=== PATIENT | male | born 1950 | race Hispanic/Latino ===

== ENCOUNTER 2019-06-02 15:22 | Inpatient (IN) | payer OTHER, MEDICARE ==
[~2019-06-02] VITALS: Ht 167.6 cm; Wt 79.0 kg
[~2019-06-02 15:22] MED LIST: ACET-2247 PO; ATOR20TA65 PO; CARV6.25 PO; CLON0.5T4 PO; CLOP75TA32 PO; GABA-531 PO; HYDR500C2 PO; INSLAN SQ; INSU100C14 SQ; LEVO112T7 PO; MONT10TA26 PO; RANO500T2 PO
[2019-06-02 18:00] LABS: BASOPHILS % (AUTO) 0.6 % (0.0-5.0); CREATININE 4.5 mg/dL (0.5-1.5); EOSINOPHILS % (AUTO) 1.9 % (0.0-8.0); HEMATOCRIT 26.8 % (42-54); LYMPHOCYTES % (AUTO) 4.4 % (21.0-51.0); MEAN CORPUSCULAR HEMOGLOBIN 39.9 pg (27.0-33.0); MEAN CORPUSCULAR VOLUME 117.5 fL (79-99); MONOCYTES % (AUTO) 2.1 % (3.0-13.0); NEUTROPHILS % (AUTO) 89.7 % (40.0-77.0); PLATELET COUNT (AUTO) 154 K/uL (130-400); POTASSIUM 3.3 mmol/L (3.5-5.1); RED BLOOD CELL COUNT(AUTO) 2.28 MIL/uL (4.50-6.20); WHITE BLOOD COUNT (AUTO) 24.8 K/uL (4.8-10.8)
[2019-06-02 18:05] LABS: ALBUMIN 3.3 g/dL (3.5-5.0); BILIRUBIN,TOTAL 0.8 mg/dL (0.2-1.0); TOTAL PROTEIN, SERUM 7.4 g/dL (6.0-8.3)
[2019-06-02] MEDS ORDERED: ACETAMINOPHEN 325 MG TAB PO PRN ×2 (19:00)
[2019-06-02] MEDS ORDERED: HYDRALAZINE HCL 20 MG/ML VIAL IV PRN (19:00)
[2019-06-02] MEDS ORDERED: FAMOTIDINE/PF 20 MG/2 ML VIAL IV ONE (19:57)
[2019-06-02] MEDS ORDERED: ZOSYN 3.375GM+NS 50ML 50 ML IV ONE (19:57)
[2019-06-02 20:24] VITALS: BP 127/33
[2019-06-02] MEDS ORDERED: SODIUM CHLORIDE 0.9% 1000ML 1,000 ML IV ONE (20:24)
[2019-06-02] MEDS: ZOSYN 3.375GM+NS 50ML 50 ML IV SCH (21:00)
[2019-06-02 22:02] VITALS: BP 142/42
[2019-06-03] VITALS (22 sets, daily range): BP systolic 118–186; BP diastolic 42–92
[2019-06-03] MEDS ORDERED: INSLAN SQ (06:33)
[2019-06-03] MEDS ORDERED: ASPI-555 PO (06:33)
[2019-06-03] MEDS ORDERED: PIPE3.379 IV (06:33)
[2019-06-03] MEDS ORDERED: CHOL200079 PO (06:33)
[2019-06-03] MEDS ORDERED: FOLI1 PO (06:33)
[2019-06-03] MEDS ORDERED: INSU100V39 SQ (06:33)
[2019-06-03] MEDS ORDERED: CLON0.5T4 PO (06:33)
[2019-06-03] MEDS ORDERED: LINE600T11 PO (06:33)
[2019-06-03] MEDS ORDERED: DOCU-116 PO (06:33)
[2019-06-03] MEDS ORDERED: LACT10SO9 PO (06:33)
--- NOTE | 2019-06-03 08:53 | NUR ---
Notified Dr. Huitron, Dr. Rico, Dr. Caldwell and Dr. Garcia of pending consultations; HD nurse called to notify of HD order.
[2019-06-03] MEDS: ZOSYN 3.375GM+NS 50ML 50 ML IV SCH ×2 (10:10→21:29)
[2019-06-03] MEDS: FAMOTIDINE/PF 20 MG/2 ML VIAL IV SCH (10:10)
[2019-06-03] MEDS: ZYVOX 600 MG TAB PO SCH (14:09)
[2019-06-03 14:24] LABS: % IRON SATURATION 102.9 % (30-44)
[2019-06-03] MEDS ORDERED: LIDOCAINE HCL 1% MDV 50ML VIAL ONE (15:24)
[2019-06-03] MEDS ORDERED: BUPIVACAINE/PF 0.25% 30ML VIAL IJ ONE (15:24)
[2019-06-03] MEDS ORDERED: FENTANYL CITRATE PF 50 MCG/1 ML 2ML VIAL ONE (15:50)
[2019-06-03] MEDS ORDERED: MIDAZOLAM HCL 1 MG/ML 2ML VIAL ONE (15:50)
--- NOTE | 2019-06-03 16:00 | NUR ---
Pt. to surgery via bed for procedure with ; verbalized understanding and consent for planned procedure; signed consent on chart.
--- NOTE | 2019-06-03 18:12 | NUR ---
INITIAL: Pt out to surgical procedure. No family members in the room. Call was made to Kristen Zurita (spouse). Per pts spouse prior to admission pt was at [facility] for rehab. Per pts spouse after amputation pt was wc bound and was transferring w assist. He has a wc @ home and provider services 4hr/day. Per pts spouse they would like for pt to return to SNF to complete Rehab. Informed spouse and son Salvatore that once pt is closer to dc and Md gives order for referral, consent will be obtained and referral faxed. Informed them that insurance would have to give authorization to return. CM to continue to follow and wait for Md recommendations. Addendum: 06/03/19 at 1815 by SAL CLARK Amended: Links added.
[2019-06-04] VITALS (7 sets, daily range): BP systolic 96–131; BP diastolic 42–70
--- NOTE | 2019-06-04 00:10 | NUR ---
ATTENDING PAGED ATTENDING PAGED REGARDING MED REC CONSOLIDATION CONTINUATION AND THE AMOUNT OF BLOOD WITHIN THE WOUND VAC CANISTER. ATTENDING ALSO NOTIFIED REGARDING THE BLOOD SEEPING FROM WOUND VAC TAPE AND BLOOD CLOT NOTICED.
--- NOTE | 2019-06-04 00:15 | NUR ---
WOUND VAC PT HAD SIGNIFICANT AMOUNT OF BLOOD SEEPING FROM TAPE WHERE WOUND VAC WAS PLACE. LARGE BLOOD CLOT WAS NOTED UNDER THE WOUND VAC TRANSPARENT TAPE AND BLOOD ACTIVELY BLEEDING FROM PROXIMAL PORTION OF WHERE WOUND VAC TAPE ENDED. BLOOD WITHIN THE WOUND VAC CANISTER IS 200 ML. WOUND VAC DRESSING REMOVED AND OOZING BLOOD WAS NOTICE TO THE LATERAL AND MEDIAL PORTION OF THE WOUND. PRESSURE WAS APPLIED FOR 10 MINS; HOWEVER, PT CONTINUED TO OOZE BLOOD. PRESSURE DRESSING PLACED AT THIS TIME. Addendum: 06/04/19 at 0052 by RIZWAN HERCULES RN RN PT LEG KEPT ELEVATED AT THIS TIME. PT IS CALM AND COLLECTIVE IN BED NO S/S OF DISTRESS. WILL CONTINUE TO MONITOR
--- NOTE | 2019-06-04 00:25 | NUR ---
DR. GARCIA PAGED DR. GARCIA PAGED AT THIS TIME TO NOTIFY HIM REGARDING PT BLOOD OOZING.
[2019-06-04] MEDS: ZYVOX 600 MG TAB PO SCH ×2 (01:05→12:48)
[2019-06-04] MEDS: MORPHINE SULFATE 2 MG/ML 1ML SYG IV PRN ×4 (01:06→18:03)
--- NOTE | 2019-06-04 01:30 | NUR ---
LEFT CENTRAL LINE DRESSING LEFT ARM CENTRAL LINE DRESSING CHANGE DONE AT THIS TIME USING STERILE TECHNIQUE. PT TOLERATED WELL.
[2019-06-04] MEDS: ONDANSETRON HCL 4 MG/2 ML VIAL IV PRN (01:39)
[2019-06-04 06:23] LABS: HEMATOCRIT 22.4 % (42-54); MEAN CORPUSCULAR HEMOGLOBIN 38.9 pg (27.0-33.0); MEAN CORPUSCULAR VOLUME 117.9 fL (79-99); PLATELET COUNT (AUTO) 132 K/uL (130-400); WHITE BLOOD COUNT (AUTO) 28.8 K/uL (4.8-10.8)
[2019-06-04 06:35] LABS: BILIRUBIN,TOTAL 0.7 mg/dL (0.2-1.0); CREATININE 4.3 mg/dL (0.5-1.5); MAGNESIUM 1.7 mg/dL (1.80-2.40); POTASSIUM 3.2 mmol/L (3.5-5.1); TOTAL PROTEIN, SERUM 6.8 g/dL (6.0-8.3)
--- NOTE | 2019-06-04 06:38 | NUR ---
DR. GARCIA PAGED DR. GARCIA PAGED AT THIS TIME
--- NOTE | 2019-06-04 06:48 | NUR ---
DR. MOODY RENDON, COVERING FOR DR. GARCIA, CALLED BACK AND INFORMED REGARDING PT ACTIVE BLEED FROM SX SITE. MD ALSO INFORMED REGARDING DROP IN H/H. NO NEW ORDERS AND DEFER H/H TO PRIMARY
--- NOTE | 2019-06-04 07:00 | NUR ---
PRIMARY PAGED SPOKE TO PRIMARY MD AT THIS TIME REGARDING THE DROP IN H/H AND REMOVAL OF WOUND VAC DUE TO BLOOD LOSS. NEW ORDER: REPEAT H/H AT 1200 (06/04/19).
[2019-06-04] MEDS: LEVOTHYROXINE 100 MCG TABLET PO SCH (07:30)
[2019-06-04] MEDS: INSULIN LISPRO 100 UNIT/ML 3ML SQ SCH ×4 (07:30→21:00)
[2019-06-04] MEDS: CLOPIDOGREL BISULFATE 75 MG TAB PO SCH ×2 (09:00→13:07)
[2019-06-04] MEDS ORDERED: INSULIN GLARGINE 100 UNITS/ML 10 ML VIAL SQ SCH (09:00)
[2019-06-04] MEDS ORDERED: RANOLAZINE 500 MG TAB.SR.12H PO SCH (09:00)
[2019-06-04] MEDS: **HM** VIT D3 2000 UNITS PO SCH (09:00)
[2019-06-04 09:09] LABS: BASOPHILS % (MANUAL) 1 % (0-2); EOSINOPHILS % (MANUAL) 3 % (1-6); LYMPHOCYTES % (MANUAL) 4 % (22-44); MONOCYTES % (MANUAL) 2 % (2-9); SEGMENTED NEUTROPHILS % 90 % (40-70)
[2019-06-04 09:10] LABS: PLATELET MORPHOLOGY COMMENT ADEQUATE
[2019-06-04] MEDS: HYDROXYUREA 500 MG CAP PO SCH ×2 (10:29→22:20)
[2019-06-04] MEDS: ATORVASTATIN CALCIUM 20 MG TABLET PO SCH (10:29)
[2019-06-04] MEDS: ASPIRIN 81 MG EC TAB PO SCH (10:29)
[2019-06-04] MEDS: DOCUSATE SODIUM 100 MG CAP PO SCH ×2 (10:29→22:20)
[2019-06-04] MEDS: MONTELUKAST SODIUM 10 MG TAB PO SCH (10:29)
[2019-06-04] MEDS: CARVEDILOL 6.25 MG TABLET PO SCH ×2 (10:30→21:00)
[2019-06-04] MEDS: FOLIC ACID 1 MG TABLET PO SCH (10:30)
[2019-06-04] MEDS: ZOSYN 3.375GM+NS 50ML 50 ML IV SCH ×2 (10:31→21:00)
[2019-06-04] MEDS: SODIUM CHLORIDE 0.9% 1000ML 1,000 ML IV SCH (10:49)
[2019-06-04] MEDS: FAMOTIDINE/PF 20 MG/2 ML VIAL IV SCH (12:48)
--- NOTE | 2019-06-04 12:51 | NUR ---
DR. GARCIA AT THE BEDSIDE, AND ASSESSMENT TO HIS LT FOOT SURGERY DRSG REMOVED AFTER IT WAS BLEEDING, SPOKE WITH FAMILY , REGARDING THE ASSESSMENT TO HIS LEFT FOOT. PASCUAL , APPLICATION APPLY .
--- NOTE | 2019-06-04 12:55 | NUR ---
DR. GARCIA AND DR DANN WYNN AWARE OF PT LT FOOT . STATUS REGARDING HIS HGB THIS AM WAS A 7.2 AFTER DRSG APPLICATION WAS CHANGED DUE TO BLEEDING THIS EARLY AM. OKAY NOT TO TRANSFUSED AND TO OKAY GIVE THE PLAXIS AND THE RANEXA , TODAY DOSE,
--- NOTE | 2019-06-04 17:30 | NUR ---
LT FOOT. DRSG , BLEEDING , REMOVE DRSG TO REPLACE, DRSG APPLICATION DONE, WITH A KERLIX , HELEN , AND . STERILE GAUZE PLACE IN SIDE THE LT WOUND AREA,
--- NOTE | 2019-06-04 17:55 | NUR ---
DR. GARCIA WAS PAGED , TO LET HIM KNOW OF DRSG STATUS ,
--- NOTE | 2019-06-04 18:40 | NUR ---
DR. MARC WYNN , WAS CALLED AND ANSWER , UPDATE OF PT DRSG STATUS THAT IT HAD BLEED AGAIN AND PAIN, STATUS WITH A LABS H AND H , AND PAIN MEDICATION ORDE.R
[2019-06-04] MEDS ORDERED: ACETAMINOPHEN-CODEINE 300/30MG TAB PO PRN (18:45)
[2019-06-04 19:37] LABS: HEMATOCRIT 20.4 % (42-54)
--- NOTE | 2019-06-04 19:40 | NUR ---
VIC. BUENROSTRO COMBINATION WELDER APPRENTICE. CALLED , HGB OF 6.7 . HCT OF 20.4 WILL MONITOR . . PT IS ALSO A DIALYSIS PT. NO ORDERS TO TRANSFUSED
[2019-06-04] MEDS ORDERED: FENTANYL 25 MCG/HR PATCH TD SCH (20:15)
[2019-06-04] MEDS ORDERED: HYDROMORPHONE HCL 0.5 MG/0.5 ML ML IVP PRN (20:15)
--- NOTE | 2019-06-04 20:27 | NUR ---
COMPUTATIONAL BIOLOGIST ASSESSED PT , STATED DUE TO DECREASED BP TO TRANSFUSED 1 UNIT OF PRBC PT ACCEPTS PLAN OF CARE AND ACCEPTS
[2019-06-05] VITALS (7 sets, daily range): BP systolic 98–127; BP diastolic 41–65
[2019-06-05] MEDS: ZYVOX 600 MG TAB PO SCH ×2 (02:21→12:49)
[2019-06-05 06:05] LABS: BASOPHILS % (AUTO) 0.6 % (0.0-5.0); EOSINOPHILS % (AUTO) 2.6 % (0.0-8.0); HEMATOCRIT 22.5 % (42-54); LYMPHOCYTES % (AUTO) 5.2 % (21.0-51.0); MEAN CORPUSCULAR HEMOGLOBIN 37.1 pg (27.0-33.0); MEAN CORPUSCULAR HGB CONC 32.4 g/dL (32.0-36.0); MEAN CORPUSCULAR VOLUME 114.2 fL (79-99); MONOCYTES % (AUTO) 3.2 % (3.0-13.0); NEUTROPHILS % (AUTO) 83.8 % (40.0-77.0); NUCLEATED RED BLOOD CELLS 0.1 % (0.0-0.19); PLATELET COUNT (AUTO) 137 K/uL (130-400); RED BLOOD CELL COUNT(AUTO) 1.97 MIL/uL (4.50-6.20); WHITE BLOOD COUNT (AUTO) 28.6 K/uL (4.8-10.8)
[2019-06-05 06:16] LABS: BILIRUBIN,TOTAL 0.8 mg/dL (0.2-1.0); CREATININE 5.4 mg/dL (0.5-1.5); MAGNESIUM 1.9 mg/dL (1.80-2.40); POTASSIUM 3.4 mmol/L (3.5-5.1); TOTAL PROTEIN, SERUM 6.8 g/dL (6.0-8.3)
[2019-06-05] MEDS ORDERED: POTASSIUM CHLORIDE 20 MEQ ERTAB PO ONE (07:11)
--- NOTE | 2019-06-05 07:30 | NUR ---
DR. GARCIA IN TO SEE PT.SURGICAL FOOT WITH SOME BLEEDING DRESSING CHANGE DON BY DR. GARCIA.
[2019-06-05] MEDS: LEVOTHYROXINE 100 MCG TABLET PO SCH (08:09)
[2019-06-05] MEDS: INSULIN LISPRO 100 UNIT/ML 3ML SQ SCH ×4 (08:13→21:00)
[2019-06-05] MEDS ORDERED: INSULIN GLARGINE 100 UNITS/ML 10 ML VIAL SQ SCH (09:00)
[2019-06-05] MEDS: **HM** VIT D3 2000 UNITS PO SCH (09:00)
--- NOTE | 2019-06-05 09:00 | NUR ---
BOBO. AM MEDS. NOT GIVEN. PT. VERY SLEEPY AND UNABLE TO SWALLOW PILLS AT THIS TIME. WILL TRY AGAIN.
--- NOTE | 2019-06-05 09:00 | NUR ---
PLAVIX ON HOLD.
[2019-06-05] MEDS: ASPIRIN 81 MG EC TAB PO SCH (09:17)
[2019-06-05] MEDS: FOLIC ACID 1 MG TABLET PO SCH (09:17)
[2019-06-05] MEDS: DOCUSATE SODIUM 100 MG CAP PO SCH ×2 (09:17→21:00)
[2019-06-05] MEDS: ONDANSETRON HCL 4 MG/2 ML VIAL IV PRN ×2 (09:18→23:40)
[2019-06-05] MEDS: MONTELUKAST SODIUM 10 MG TAB PO SCH (09:18)
[2019-06-05] MEDS: FAMOTIDINE/PF 20 MG/2 ML VIAL IV SCH (09:18)
[2019-06-05] MEDS: ZOSYN 3.375GM+NS 50ML 50 ML IV SCH ×2 (09:18→23:18)
[2019-06-05] MEDS: ATORVASTATIN CALCIUM 20 MG TABLET PO SCH (09:18)
[2019-06-05] MEDS: INSULIN GLARGINE 100 UNITS/ML 10 ML VIAL SQ SCH (09:32)
--- NOTE | 2019-06-05 12:30 | NUR ---
MORE AWAKE AND RESPONSIVE WITH SPOUSE HELP ABLE TO GIVE SOME MEDICATION. PER DR. CASTAÑEDA IT IS BETTER TO NOT GIVE HEAVY NARCOTICS.
[2019-06-05] MEDS: HYDROXYUREA 500 MG CAP PO SCH ×2 (12:49→23:33)
--- NOTE | 2019-06-05 17:00 | NUR ---
MORE ALERT AND CO PERATIVE NOW BUT STILL EATING VERY LITTLE, HAS BEEN SLEEPING MOST OF DAY HOWEVER WAS ABLE TO SIT IN CHAIR FOR A SHORT PERIOD.
[2019-06-05] MEDS: CARVEDILOL 6.25 MG TABLET PO SCH ×2 (21:00→23:32)
[2019-06-06] MEDS: SODIUM CHLORIDE 0.9% 1000ML 1,000 ML IV SCH ×2 (02:49→16:09)
[2019-06-06 03:55] VITALS: BP 91/54
--- NOTE | 2019-06-06 03:57 | NUR ---
UPDATE INFORMED HOSPITALIST RODRIGUEZ OF PT STATUS WITH EMESIS NOT TOLERATE PO REFUSAL OF MEDS
[2019-06-06] MEDS ORDERED: HYDROMORPHONE HCL 0.5 MG/0.5 ML ML IVP ONE (04:00)
[2019-06-06 05:44] LABS: BASOPHILS % (AUTO) 0.4 % (0.0-5.0); EOSINOPHILS % (AUTO) 0.4 % (0.0-8.0); HEMATOCRIT 21.9 % (42-54); LYMPHOCYTES % (AUTO) 1.5 % (21.0-51.0); MEAN CORPUSCULAR HEMOGLOBIN 36.6 pg (27.0-33.0); MEAN CORPUSCULAR HGB CONC 32.4 g/dL (32.0-36.0); MEAN CORPUSCULAR VOLUME 112.9 fL (79-99); MONOCYTES % (AUTO) 1.4 % (3.0-13.0); NEUTROPHILS % (AUTO) 92.1 % (40.0-77.0); NUCLEATED RED BLOOD CELLS 0.1 % (0.0-0.19); PLATELET COUNT (AUTO) 134 K/uL (130-400); RED BLOOD CELL COUNT(AUTO) 1.94 MIL/uL (4.50-6.20)
[2019-06-06 05:48] LABS: WHITE BLOOD COUNT (AUTO) 40.2 K/uL (4.8-10.8)
[2019-06-06 05:52] LABS: CREATININE 6.8 mg/dL (0.5-1.5); POTASSIUM 4.4 mmol/L (3.5-5.1)
[2019-06-06 06:14] LABS: LYMPHOCYTES % (MANUAL) 2 % (22-44); MAN.DIFF COMMENT-IMPRESSION MANUAL DIFFERENTIAL; MONOCYTES % (MANUAL) 2 % (2-9); SEGMENTED NEUTROPHILS % 96 % (40-70)
[2019-06-06 06:15] LABS: PLATELET MORPHOLOGY COMMENT ADEQUATE
[2019-06-06] MEDS: INSULIN LISPRO 100 UNIT/ML 3ML SQ SCH ×4 (07:30→21:00)
[2019-06-06 07:56] VITALS: BP 117/58
[2019-06-06] MEDS ORDERED: ACETAMINOPHEN-CODEINE 300/30MG TAB PO PRN (08:30)
[2019-06-06] MEDS: **HM** VIT D3 2000 UNITS PO SCH (09:00)
[2019-06-06 11:40] VITALS: BP 127/54
[2019-06-06] MEDS: ASPIRIN 81 MG EC TAB PO SCH (11:48)
[2019-06-06] MEDS: FAMOTIDINE/PF 20 MG/2 ML VIAL IV SCH (11:48)
[2019-06-06] MEDS: ZOSYN 3.375GM+NS 50ML 50 ML IV SCH ×2 (11:48→21:48)
[2019-06-06] MEDS: ATORVASTATIN CALCIUM 20 MG TABLET PO SCH (11:48)
[2019-06-06] MEDS: DOCUSATE SODIUM 100 MG CAP PO SCH ×2 (11:49→21:00)
[2019-06-06] MEDS: LEVOTHYROXINE 100 MCG TABLET PO SCH (11:51)
[2019-06-06] MEDS: MONTELUKAST SODIUM 10 MG TAB PO SCH (11:51)
[2019-06-06] MEDS: CARVEDILOL 6.25 MG TABLET PO SCH ×2 (11:51→22:00)
[2019-06-06] MEDS: FOLIC ACID 1 MG TABLET PO SCH (11:52)
[2019-06-06] MEDS: ZYVOX 600 MG TAB PO SCH ×2 (12:20)
[2019-06-06] MEDS: HYDROXYUREA 500 MG CAP PO SCH ×2 (12:24→21:56)
[2019-06-06] MEDS: INSULIN GLARGINE 100 UNITS/ML 10 ML VIAL SQ SCH (12:27)
--- NOTE | 2019-06-06 13:02 | NUR ---
SEEN BY DRs. PITT, AND GARRY DURING ROUNDS. NOTIFIED BOTH MDs OF LAB REPORT OF LEFT FOOT WOUND CULTURE POSITIVE FOR ACINETOBACTER BAUMANNII. ALSO NOTIFIED DR. CASTAÑEDA OF LOW APETITE. NEW ORDERS NOTED. STABLE POST HEMODIALYSIS
--- NOTE | 2019-06-06 15:09 | NUR ---
MEET WITH PRIMARY NURSE, KORIN HOLDER. PER NURSE, PATIENT IS FROM [facility]. PER KORIN, DR. PITT SAID POSSIBLE AMPUTATION BUT AMPUTATION NOT ORDERED BY DR. GARCIA. PENDING MD ROUND FRO CLEAR DC PLAN. PER [facility], OK FOR PATIENT TO RETURN ONCE ORDER FOR SNF OBTAINED AND SNF AUTHORIZED BY [facility]. NURSE TO CALL DR. GARCIA AND FOR POSSIBLE AMPUTATION ORDER.
[2019-06-06 16:00] VITALS: BP 136/51
--- NOTE | 2019-06-06 16:02 | NUR ---
RD NOTIFICATION DIET: RENAL DIALYSIS. PO INTAKE <25% AND HAS POOR APPETITE. LABS REVIEWED. MEDS REVIEWED. LEFT FOOT DM ULCER WITH GANGRENE NOTED. PT IS ON DIALYSIS AT THIS TIME. S/P [employer] AMPUTATION OF LEFT FOOT ON 04/22/19. RD RECOMMENDS TO ADD NEPRO SUPP. TID RECOMMEND ALMA AND PROMOD BID FOR WOUND HEALING MONITOR PO INTAKE, TOLERANCE, LABS, BM Addendum: 06/06/19 at [address] Amended: Links added.
[2019-06-06 20:00] VITALS: BP 118/41
[2019-06-06] MEDS ORDERED: CLONAZEPAM 1 MG TABLET PO ONE (21:00)
[2019-06-07] VITALS (7 sets, daily range): BP systolic 102–142; BP diastolic 36–59
[2019-06-07] MEDS: ZYVOX 600 MG TAB PO SCH ×2 (00:57→12:32)
[2019-06-07] MEDS: SODIUM CHLORIDE 0.9% 1000ML 1,000 ML IV SCH (05:29)
--- NOTE | 2019-06-07 06:15 | NUR ---
UPDATE 5235 HOSPITALIST PAGED IN REGARDS TO PT PULLING OUT PICC LINE. DRESSING AND STAT LOCK CHANGED AND SECURED PICC LINE AT 8CM
[2019-06-07] MEDS: INSULIN LISPRO 100 UNIT/ML 3ML SQ SCH ×4 (06:32→22:30)
[2019-06-07 06:59] LABS: BASOPHILS % (AUTO) 0.5 % (0.0-5.0); EOSINOPHILS % (AUTO) 0.3 % (0.0-8.0); HEMATOCRIT 23.2 % (42-54); LYMPHOCYTES % (AUTO) 1.1 % (21.0-51.0); MEAN CORPUSCULAR HEMOGLOBIN 36.9 pg (27.0-33.0); MEAN CORPUSCULAR HGB CONC 32.3 g/dL (32.0-36.0); MEAN CORPUSCULAR VOLUME 114.3 fL (79-99); MONOCYTES % (AUTO) 1.8 % (3.0-13.0); NEUTROPHILS % (AUTO) 93.8 % (40.0-77.0); PLATELET COUNT (AUTO) 160 K/uL (130-400); RED BLOOD CELL COUNT(AUTO) 2.03 MIL/uL (4.50-6.20)
[2019-06-07 07:04] LABS: CREATININE 5.7 mg/dL (0.5-1.5); MAGNESIUM 2.3 mg/dL (1.80-2.40)
[2019-06-07 07:11] LABS: WHITE BLOOD COUNT (AUTO) 61.3 K/uL (4.8-10.8)
[2019-06-07] MEDS: LEVOTHYROXINE 100 MCG TABLET PO SCH (07:30)
--- NOTE | 2019-06-07 07:30 | NUR ---
RECEIVED PATIENT PER NURSE FROM DIVISION SALES MANAGER NURSE UPON SHIFT CHANGE, PATIENT HAD INADVERTENTLY PULLED LEFT UPPER ARM PICC LINE DURING MORNING LAB DRAW AND PICC LINE DRESSING CHANGE PERFORMED BY NIGHT NURSE. WHEN I RECEIVED PATIENT, LEFT UPPER ARM PICC LINE DRESSING INTACT, BRUISING NOTED TO LEFT UPPER ARM. LEFT FOOT GAUZE & HELEN WRAP DRESSING DRY AND INTACT. PATIENT ALERT AND ORIENTED X3.
[2019-06-07 07:35] LABS: BAND NEUTROPHILS % (MANUAL) 1 % (0-2); LYMPHOCYTES % (MANUAL) 3 % (22-44); MAN.DIFF COMMENT-IMPRESSION MANUAL DIFFERENTIAL; MONOCYTES % (MANUAL) 1 % (2-9); PLATELET MORPHOLOGY COMMENT ADEQUATE; SEGMENTED NEUTROPHILS % 95 % (40-70)
[2019-06-07] MEDS: **HM** VIT D3 2000 UNITS PO SCH (09:00)
[2019-06-07] MEDS: FAMOTIDINE/PF 20 MG/2 ML VIAL IV SCH (09:00)
[2019-06-07] MEDS: ZOSYN 3.375GM+NS 50ML 50 ML IV SCH (09:00)
[2019-06-07] MEDS: INSULIN GLARGINE 100 UNITS/ML 10 ML VIAL SQ SCH (09:58)
[2019-06-07] MEDS: HYDROXYUREA 500 MG CAP PO SCH ×2 (10:02→22:10)
[2019-06-07] MEDS: ASPIRIN 81 MG EC TAB PO SCH (10:02)
[2019-06-07] MEDS: DOCUSATE SODIUM 100 MG CAP PO SCH ×2 (10:03→22:11)
[2019-06-07] MEDS: CARVEDILOL 6.25 MG TABLET PO SCH ×2 (10:03→22:11)
[2019-06-07] MEDS: MONTELUKAST SODIUM 10 MG TAB PO SCH (10:03)
[2019-06-07] MEDS: FOLIC ACID 1 MG TABLET PO SCH (10:03)
[2019-06-07] MEDS: ATORVASTATIN CALCIUM 20 MG TABLET PO SCH (10:03)
[2019-06-07 10:59] LABS: INR 1.49 (0.85-1.15); PROTHROMBIN TIME 15.4 SEC (9.6-11.6)
[2019-06-07] MEDS ORDERED: PHARMACY COMMUNICATION MISC SCH ×2 (13:45→14:30)
[2019-06-07] MEDS ORDERED: COMPOUND PO MISCELLANEOUS 1 EACH MISC MISC PRN (14:15)
--- NOTE | 2019-06-07 14:45 | NUR ---
ASSESSED LEFT ARM PICC LINE FOR EXCHANGE, DUE TO PICC LINE PULLED OUT ABOUT 8.5CM AND REPORT OF PICC TIP SEEN AT ABOUT BRACHIOCEPHALIC VEIN PER DR. SANTIAGO RADIOLOGIST. 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 PHONE CALL MADE TO OWNER PROFESSIONAL ENGINEER DR. DAY TO ADVISE HIM OF ORDER BY DR. CASTAÑEDA TO EXCHANGE PICC. DR. DAY STATES THAT HE WANTS PICC EXCHANGED UNDER FLUOROSCOPY DUE TO PACEMAKER LEADS COMING FROM SAME SIDE. 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 I ADVISED DR. DAY THAT PICC NURSE DOESNT DO PICC WITH FLUOROSCOPIC GUIDANCE, SO HE REQUESTED THAT INTERVENTIONAL RADIOLOGY GET CONSULTED. ALSO CALLED DR. CASTAÑEDA TO NOTIFY OF DR. MCDONALD'S REQUEST. RADIOLOGY NURSE YESENIA MADE AWARE AND WILL COMMUNICATE WITH IR DR. ANDERSON OR DR. CUNNINGHAM FOR FURTHER RECOMMENDATION. YESENIA WILL COMMUNICATE WITH ELECTRIC MOTOR REBUILDER WITH IR DR. LEMUS
--- NOTE | 2019-06-07 15:30 | NUR ---
SPOKE TO DR. CASTAÑEDA AND ADVISED THAT BOTH PICC LUMENS HAVE GOOD BLOOD RETURN AND FLUSH EASILY WITH NO RESISTANCE. OK TO USE CURRENT PICC MIDLINE FOR ANTIBIOTIC ADMINISTRATION UNTIL PICC EXCHANGE IS COORDINATED. ALSO COMMUNICATED WITH PHAMACIST AND OKED TO GIVE CURRENT ANTIBIOTIC VIA PICC FUNCTIONING MIDLINE. WANDER HOLDER AND PLANT PRODUCTION MANAGER LAVON AWARE.
[2019-06-07] MEDS: VANCOMYCIN 250MG/5ML ORAL SOLUTION 40ML PO SCH ×4 (15:55→22:15)
[2019-06-07] MEDS: SODIUM CHLORIDE 0.9% IV SCH (15:59)
[2019-06-07] MEDS: COLISTIN IV SCH (15:59)
[2019-06-08] MEDS: ZYVOX 600 MG TAB PO SCH ×2 (00:02→12:00)
[2019-06-08] MEDS: ONDANSETRON HCL 4 MG/2 ML VIAL IV PRN (00:13)
[2019-06-08] MEDS: VANCOMYCIN 250MG/5ML ORAL SOLUTION 40ML PO SCH ×8 (03:11→20:50)
[2019-06-08 04:31] VITALS: BP 104/48
[2019-06-08] MEDS: INSULIN LISPRO 100 UNIT/ML 3ML SQ SCH ×4 (05:38→21:00)
[2019-06-08 05:48] LABS: CREATININE 6.7 mg/dL (0.5-1.5); MAGNESIUM 2.1 mg/dL (1.80-2.40); POTASSIUM 3.3 mmol/L (3.5-5.1)
[2019-06-08 05:49] LABS: BASOPHILS % (AUTO) 0.5 % (0.0-5.0); LYMPHOCYTES % (AUTO) 1.7 % (21.0-51.0); MEAN CORPUSCULAR HEMOGLOBIN 38.2 pg (27.0-33.0); MEAN CORPUSCULAR HGB CONC 33.3 g/dL (32.0-36.0); MEAN CORPUSCULAR VOLUME 114.5 fL (79-99); MONOCYTES % (AUTO) 1.3 % (3.0-13.0); NEUTROPHILS % (AUTO) 92.6 % (40.0-77.0); PLATELET COUNT (AUTO) 145 K/uL (130-400); RED BLOOD CELL COUNT(AUTO) 1.65 MIL/uL (4.50-6.20)
[2019-06-08 05:51] LABS: HEMATOCRIT 18.9 % (42-54); WHITE BLOOD COUNT (AUTO) 51.5 K/uL (4.8-10.8)
[2019-06-08] MEDS: LEVOTHYROXINE 100 MCG TABLET PO SCH (06:18)
--- NOTE | 2019-06-08 06:20 | NUR ---
HGB 6.3 AND WBC 51.5 SPOKE WITH WINSOME GLASS CRUSHER HE ORDERED REPEAT H AND H. SEEN PATIENT, PT IS ALERT ORIENTED X3. PT DENIED [place] SHORTNESS OF BREATHING NOR ANY PAIN NOR CHEST PAIN. VITAL SIGNS WITHIN NORMAL RANGE HR 82 BP 105/51 RR 18 TEMP 98.1 O2 SAT 98 TO ROOM AIR.
[2019-06-08 06:38] LABS: HEMATOCRIT 21.1 % (42-54)
[2019-06-08 08:00] VITALS: BP 93/38
--- NOTE | 2019-06-08 08:06 | NUR ---
HGB RESULTS REPEAT 6.9 SPOKE WITH THAD FROM LAB VIA PHONE, SHE SAID REPEAT HGB WAS 6.9, PAGED HOSPITALIST , SPOKE WITH ANSWERING SERVICE, HE SAID HE WILL PAGED THE HOSPITALIST TO EXT NUMBER [id number] VIRAMONTES. INFORMED GLORY VIRAMONTES ABOUT THE REPEAT H AND H AND WBC. INFORMED HER TO FOLLOW UP WITH HOSPITALIST, I ALREADY PAGED THEM. PENDING FOR CALL BACK
--- NOTE | 2019-06-08 08:35 | NUR ---
PATIENT SYMPTOMATIC CALLED DR. CASTAÑEDA TO REPORT PATIENT BP 93/38, HR 83, TEMP 97.4, O2 SAT 96% ON ROOM AIR. PATIENT ALSO REPORTS FEELING "DIZZY AND WEAK". MD PLACED ORDERS.
[2019-06-08] MEDS ORDERED: SODIUM CHLORIDE 0.9% 250 ML IV ONE (08:52)
--- NOTE | 2019-06-08 08:55 | NUR ---
BP RECHECK/NS BOLUS GIVEN DR. CASTAÑEDA HERE TO SEE PATIENT. BLOOD PRESSURE RECHECK 100/60. DR. CASTAÑEDA TOLD ME TO GIVE NS 100ML BOLUS INSTEAD AND GIVE ORDERED UNIT OF [facility] WHEN BLOOD READY. AWARE PATIENT TO RECEIVE HD TREATMENT TODAY.
[2019-06-08] MEDS: ASPIRIN 81 MG EC TAB PO SCH (09:00)
[2019-06-08] MEDS: MONTELUKAST SODIUM 10 MG TAB PO SCH (09:00)
[2019-06-08] MEDS: CARVEDILOL 6.25 MG TABLET PO SCH ×2 (09:00→20:51)
[2019-06-08] MEDS: **HM** VIT D3 2000 UNITS PO SCH (09:00)
[2019-06-08] MEDS: FOLIC ACID 1 MG TABLET PO SCH (09:00)
[2019-06-08] MEDS: DOCUSATE SODIUM 100 MG CAP PO SCH ×2 (09:00→20:50)
[2019-06-08] MEDS ORDERED: SODIUM CHLORIDE 0.9% 250 ML IV SCH (09:00)
[2019-06-08] MEDS ORDERED: CLOPIDOGREL BISULFATE 75 MG TAB PO SCH (09:00)
[2019-06-08] MEDS: ATORVASTATIN CALCIUM 20 MG TABLET PO SCH (09:00)
[2019-06-08] MEDS: HYDROXYUREA 500 MG CAP PO SCH ×2 (09:00→20:51)
[2019-06-08] MEDS: INSULIN GLARGINE 100 UNITS/ML 10 ML VIAL SQ SCH (09:00)
[2019-06-08 11:31] VITALS: BP 120/40
[2019-06-08] MEDS ORDERED: LOPERAMIDE 1 MG/7.5 ML UDCUP PO PRN (12:15)
--- NOTE | 2019-06-08 13:50 | NUR ---
CM NOTE MARILOU SIGNED FOR [facility]. PER , OK TO RETURN TO SNF ONCE READY TO DC FROM HOSPITAL, ANTICIPATED DC DATE OF 06/11/19. GRACY FROM [facility] CALLED FOR HELP WITH CLINICAL SUBMITTANCE. WILL SUBMIT ON 06/09/19, COPY OF PACKET GIVEN TO GRACY. ANTICIPATED EMS TRANSFER WELL, REQUEST FAXED AND RECEIVED AT [facility], PENDING EMS AUTHORIZATION.
[2019-06-08] MEDS: FAMOTIDINE/PF 20 MG/2 ML VIAL IV SCH (15:16)
[2019-06-08 16:05] VITALS: BP 113/46
[2019-06-08] MEDS: COLISTIN IV SCH (16:57)
[2019-06-08] MEDS: SODIUM CHLORIDE 0.9% IV SCH (16:57)
[2019-06-08] MEDS ORDERED: IODIXANOL 320 MG/ML 100 ML VIAL ONE (19:46)
[2019-06-08 20:40] VITALS: BP 102/51
[2019-06-08 23:00] VITALS: BP 136/76
[2019-06-09] MEDS: ZYVOX 600 MG TAB PO SCH ×3 (00:04→23:59)
[2019-06-09] MEDS: VANCOMYCIN 250MG/5ML ORAL SOLUTION 40ML PO SCH ×8 (02:40→20:07)
[2019-06-09 03:00] VITALS: BP 104/49
[2019-06-09] MEDS ORDERED: ALPRAZOLAM 0.25 MG TABLET PO STA (04:19)
[2019-06-09] MEDS ORDERED: ALPRAZOLAM 0.25 MG TABLET ONE (04:23)
[2019-06-09] MEDS: LEVOTHYROXINE 100 MCG TABLET PO SCH (05:36)
[2019-06-09] MEDS: INSULIN LISPRO 100 UNIT/ML 3ML SQ SCH ×4 (05:47→20:46)
[2019-06-09 07:16] LABS: CREATININE 5.3 mg/dL (0.5-1.5); POTASSIUM 3.2 mmol/L (3.5-5.1)
[2019-06-09 07:25] LABS: BASOPHILS % (AUTO) 0.6 % (0.0-5.0); EOSINOPHILS % (AUTO) 1.7 % (0.0-8.0); HEMATOCRIT 25.3 % (42-54); LYMPHOCYTES % (AUTO) 2.3 % (21.0-51.0); MEAN CORPUSCULAR HEMOGLOBIN 35.3 pg (27.0-33.0); MEAN CORPUSCULAR HGB CONC 32.8 g/dL (32.0-36.0); MEAN CORPUSCULAR VOLUME 107.7 fL (79-99); NEUTROPHILS % (AUTO) 86.6 % (40.0-77.0); NUCLEATED RED BLOOD CELLS 0.1 % (0.0-0.19); PLATELET COUNT (AUTO) 151 K/uL (130-400); RED BLOOD CELL COUNT(AUTO) 2.35 MIL/uL (4.50-6.20); RED CELL DISTRIBUTION WIDTH 29.5 % (11.0-15.5)
[2019-06-09 07:27] LABS: WHITE BLOOD COUNT (AUTO) 50.5 K/uL (4.8-10.8)
[2019-06-09 08:00] VITALS: BP 128/71
[2019-06-09 08:35] LABS: BAND NEUTROPHILS % (MANUAL) 1 % (0-2); EOSINOPHILS % (MANUAL) 1 % (1-6); LYMPHOCYTES % (MANUAL) 2 % (22-44); MONOCYTES % (MANUAL) 1 % (2-9); SEGMENTED NEUTROPHILS % 95 % (40-70)
[2019-06-09 08:39] LABS: MAN.DIFF COMMENT-IMPRESSION MANUAL DIFFERENTIAL
[2019-06-09 08:41] LABS: PLATELET MORPHOLOGY COMMENT ADEQUATE
[2019-06-09] MEDS: **HM** VIT D3 2000 UNITS PO SCH (09:00)
--- NOTE | 2019-06-09 10:00 | NUR ---
CM NOTE PENDING DR. GARCIA TO ROUND. CALLED DR. GARCIA TO SEE IF PHYSICAL THERAPY IS APPROPRIATE AND IF ABLE TO BEAR WEIGHT. NO ANSWER, MESSAGE LEFT. PENDING CALL BACK. DELEGATED TO INDIA HOLDER, TO INQUIRE ABOUT PT AND WEIGHT BEARING STATUS ON PATIENT FROM DR. GARCIA.
[2019-06-09] MEDS: ATORVASTATIN CALCIUM 20 MG TABLET PO SCH (10:17)
[2019-06-09] MEDS: HYDROXYUREA 500 MG CAP PO SCH ×3 (10:17→20:07)
[2019-06-09] MEDS: MONTELUKAST SODIUM 10 MG TAB PO SCH (10:17)
[2019-06-09] MEDS: ASPIRIN 81 MG EC TAB PO SCH (10:17)
[2019-06-09] MEDS: CLOPIDOGREL BISULFATE 75 MG TAB PO SCH (10:18)
[2019-06-09] MEDS: FAMOTIDINE/PF 20 MG/2 ML VIAL IV SCH (10:20)
[2019-06-09] MEDS: FOLIC ACID 1 MG TABLET PO SCH (10:20)
[2019-06-09] MEDS: INSULIN GLARGINE 100 UNITS/ML 10 ML VIAL SQ SCH (10:30)
--- NOTE | 2019-06-09 11:43 | NUR ---
PAGED DR. PEREZ RE:DIALYSIS. WAITING FOR CALL BACK. BOBO. HD YESTERDAY NOT DONE AND THIS AM PT. SOB AND LOOKS EDEMATOUS.
--- NOTE | 2019-06-09 11:46 | NUR ---
SM. AREA, PEA SIZE, WITH SKIN BREAKDOWN. PICTURE TAKEN, SKIN BARRIER APPLIED AND WOUND CARE CONSULT REQUEST REQUESTED.
[2019-06-09 12:00] VITALS: BP 97/58
--- NOTE | 2019-06-09 12:03 | NUR ---
TALKED TO DR. PEREZ AND GAVE HIM UPDATE ON PT. PLUS AM LABS, ORDER TO DIALYSIS TODAY GIVEN IT WAS MISSED YESTERDAY. HD NURSE NOTIFIED.
--- NOTE | 2019-06-09 12:21 | NUR ---
Nutrition Follow-up: Pt. S/P Cutting of skin soft tissue and removal of necrotic tissue / wound vac left foot(06/03/2019). Pt. on Renal Dialysis diet, Nepro TID, ProMod/Ayan BID. Pt. reports poor p.o. intake due to difficulty chewing. Spoke with pt. regarding adding finely chopped texture and pt. agreed. Pt. dislikes Ayan/ProMod and states is not drinking them. Family member requested to discontinue Ayan and ProMod. Pt. tolerating Nepro supp. well. Labs reviewed(Alb 3.0, K 3.2, BUN 45, Creat 5.3, GFR 11, BG 194). SR-18, left buttock ulcer. LBM: 06/09/2019. Recommendations: 1) Rec. 75gm CCD Renal Dialysis Finely Chopped diet. 2) Rec. D/C Ayan/Promod supplements per pt./family request. 3) Rec. 500mg Vit C BID and 220mg Zn Sulfate QD to help promote wound healing. 4) Continue to monitor pt's nutritional status. 5) Consult RD as nutrition concerns arise. Addendum: 06/09/19 at [address] Amended: Links added.
--- NOTE | 2019-06-09 13:50 | NUR ---
STARTED ON HD NOW, MISSED YESTERDAY DUE T LOW BP.
[2019-06-09 16:00] VITALS: BP 121/45
[2019-06-09] MEDS ORDERED: HEPARIN SODIUM 5000UNIT/ML 1ML VIAL IJ PRN (16:00)
[2019-06-09] MEDS ORDERED: 0.9% SODIUM CHLORIDE 1000 ML IV BAG IV PRN (16:00)
[2019-06-09] MEDS ORDERED: NITROGLYCERIN 0.4 MG SL TAB SL PRN (16:00)
[2019-06-09] MEDS ORDERED: SODIUM CHLORIDE 0.9% 1000ML 1,000 ML IV PRN (16:00)
--- NOTE | 2019-06-09 16:00 | NUR ---
WAS ON DIALYSIS FOR 2 HRS. AND STRUGGLED WITH BP. .5 LITERS REMOVED.
[2019-06-09] MEDS ORDERED: ACETAMINOPHEN 325 MG TAB PO PRN (16:15)
[2019-06-09] MEDS: SODIUM CHLORIDE 0.9% IV SCH (16:46)
[2019-06-09] MEDS: COLISTIN IV SCH (16:46)
[2019-06-09 20:00] VITALS: BP 112/46
[2019-06-10] VITALS (34 sets, daily range): BP systolic 85–165; BP diastolic 29–86
[2019-06-10] MEDS ORDERED: DIPHENHYDRAMINE HCL 25 MG CAPSULE PO STA (00:40)
--- NOTE | 2019-06-10 00:43 | NUR ---
SPOKE WITH BIMAL ARTIS FOR HOSPITALIST, INFORMED HER THAT PATIENT AND FAMILY MEMBER ARE STATING THAT PATIENT IS HAVING DIFFICULTY BREATHING BECAUSE HE IS GETTING SWOLLEN FORM NECK AREA. INFORMED HER THAT PATIENT O2 SAT IS 100% ON 2 LITERS, ALSO INFORMED HER THAT DR PEREZ HAD JUST ROUNDED ON PATIENT AND ASSESSED HIM AND HAD INFORMED HIM THAT HE WOULD POSSIBLY GET DIALYSIS TODAY. BIMAL ARTIS ORDERED TO GIVE PATIENT BENADRYL 25MG PO X 1 DOSE.
[2019-06-10] MEDS ORDERED: DIPHENHYDRAMINE HCL 25 MG CAPSULE ONE (00:47)
[2019-06-10] MEDS: VANCOMYCIN 250MG/5ML ORAL SOLUTION 40ML PO SCH ×8 (02:42→21:16)
[2019-06-10] MEDS: INSULIN LISPRO 100 UNIT/ML 3ML SQ SCH ×4 (05:46→21:00)
[2019-06-10] MEDS: LEVOTHYROXINE 100 MCG TABLET PO SCH ×2 (05:56→09:47)
[2019-06-10 06:08] LABS: BASOPHILS % (AUTO) 0.5 % (0.0-5.0); EOSINOPHILS % (AUTO) 2.9 % (0.0-8.0); HEMATOCRIT 23.4 % (42-54); LYMPHOCYTES % (AUTO) 4.2 % (21.0-51.0); MEAN CORPUSCULAR HEMOGLOBIN 34.8 pg (27.0-33.0); MEAN CORPUSCULAR HGB CONC 32.9 g/dL (32.0-36.0); MEAN CORPUSCULAR VOLUME 105.9 fL (79-99); MONOCYTES % (AUTO) 2.3 % (3.0-13.0); NEUTROPHILS % (AUTO) 88.8 % (40.0-77.0); NUCLEATED RED BLOOD CELLS 0.1 % (0.0-0.19); PLATELET COUNT (AUTO) 132 K/uL (130-400); RED BLOOD CELL COUNT(AUTO) 2.21 MIL/uL (4.50-6.20); RED CELL DISTRIBUTION WIDTH 28.5 % (11.0-15.5)
[2019-06-10 06:12] LABS: WHITE BLOOD COUNT (AUTO) 39.3 K/uL (4.8-10.8)
[2019-06-10 06:16] LABS: CREATININE 5.8 mg/dL (0.5-1.5); POTASSIUM 3.1 mmol/L (3.5-5.1)
[2019-06-10] MEDS: **HM** VIT D3 2000 UNITS PO SCH (09:00)
[2019-06-10] MEDS ORDERED: NOREPINEPHRINE 4MG/NS 250ML 250 ML IV SCH (09:30)
[2019-06-10] MEDS: MONTELUKAST SODIUM 10 MG TAB PO SCH (09:47)
[2019-06-10] MEDS: ASPIRIN 81 MG EC TAB PO SCH (09:47)
[2019-06-10] MEDS: ATORVASTATIN CALCIUM 20 MG TABLET PO SCH (09:47)
[2019-06-10] MEDS: CLOPIDOGREL BISULFATE 75 MG TAB PO SCH (09:47)
[2019-06-10] MEDS: FOLIC ACID 1 MG TABLET PO SCH (09:47)
[2019-06-10] MEDS: FAMOTIDINE/PF 20 MG/2 ML VIAL IV SCH (09:47)
[2019-06-10] MEDS: HYDROXYUREA 500 MG CAP PO SCH ×3 (09:47→21:41)
[2019-06-10] MEDS: INSULIN GLARGINE 100 UNITS/ML 10 ML VIAL SQ SCH (09:56)
--- NOTE | 2019-06-10 10:38 | NUR ---
Patient was received from 3rd floor at this time. Patient states no distress. Appropriate pictures of patient wounds taken at this time. Blood pressures are now stable. after patient was settled into unit, family has been at bedside. Call light within reach, will continue to monitor
[2019-06-10] MEDS: ZYVOX 600 MG TAB PO SCH (13:14)
[2019-06-10] MEDS ORDERED: ALBUMIN (HUMAN) 25% 50 ML IV SCH (16:00)
[2019-06-10] MEDS: COLISTIN IV SCH (16:37)
[2019-06-10] MEDS: SODIUM CHLORIDE 0.9% IV SCH (16:37)
--- NOTE | 2019-06-10 16:40 | NUR ---
Most recent bs 139, Patient does not have much of an appetite at this time. Holding scheduled Insulin
[2019-06-11] VITALS (23 sets, daily range): BP systolic 108–159; BP diastolic 42–88
[2019-06-11] MEDS: ZYVOX 600 MG TAB PO SCH ×3 (00:35→23:28)
[2019-06-11] MEDS: VANCOMYCIN 250MG/5ML ORAL SOLUTION 40ML PO SCH ×8 (03:08→21:19)
[2019-06-11 04:19] LABS: BASOPHILS % (AUTO) 0.4 % (0.0-5.0); EOSINOPHILS % (AUTO) 2.6 % (0.0-8.0); LYMPHOCYTES % (AUTO) 4.5 % (21.0-51.0); MEAN CORPUSCULAR HEMOGLOBIN 34.7 pg (27.0-33.0); MEAN CORPUSCULAR HGB CONC 32.9 g/dL (32.0-36.0); MEAN CORPUSCULAR VOLUME 105.6 fL (79-99); MONOCYTES % (AUTO) 1.7 % (3.0-13.0); NEUTROPHILS % (AUTO) 86.7 % (40.0-77.0); NUCLEATED RED BLOOD CELLS 0.1 % (0.0-0.19); PLATELET COUNT (AUTO) 93 K/uL (130-400); RED BLOOD CELL COUNT(AUTO) 1.96 MIL/uL (4.50-6.20); RED CELL DISTRIBUTION WIDTH 27.9 % (11.0-15.5)
[2019-06-11 04:34] LABS: CREATININE 4.6 mg/dL (0.5-1.5); HEMATOCRIT 20.7 % (42-54); POTASSIUM 3.2 mmol/L (3.5-5.1); WHITE BLOOD COUNT (AUTO) 29.9 K/uL (4.8-10.8)
[2019-06-11] MEDS ORDERED: LEVOTHYROXINE 112 MCG TABLET ONE (07:04)
[2019-06-11] MEDS: INSULIN LISPRO 100 UNIT/ML 3ML SQ SCH ×4 (07:22→21:00)
[2019-06-11] MEDS ORDERED: LEVOTHYROXINE 100 MCG TABLET PO SCH (07:30)
[2019-06-11] MEDS: **HM** VIT D3 2000 UNITS PO SCH (09:00)
[2019-06-11] MEDS: CLOPIDOGREL BISULFATE 75 MG TAB PO SCH (09:00)
[2019-06-11] MEDS: MONTELUKAST SODIUM 10 MG TAB PO SCH (09:04)
[2019-06-11] MEDS: HYDROXYUREA 500 MG CAP PO SCH ×3 (09:04→21:17)
[2019-06-11] MEDS: FAMOTIDINE/PF 20 MG/2 ML VIAL IV SCH (09:04)
[2019-06-11] MEDS: ASPIRIN 81 MG EC TAB PO SCH (09:04)
[2019-06-11] MEDS: ATORVASTATIN CALCIUM 20 MG TABLET PO SCH (09:04)
[2019-06-11] MEDS: FOLIC ACID 1 MG TABLET PO SCH (09:04)
[2019-06-11] MEDS: INSULIN GLARGINE 100 UNITS/ML 10 ML VIAL SQ SCH (09:07)
[2019-06-11] MEDS: SODIUM CHLORIDE 0.9% IV SCH (14:35)
[2019-06-11] MEDS: COLISTIN IV SCH (14:35)
[2019-06-11] MEDS: FERROUS SULFATE 325 MG TABLET.DR PO SCH (16:53)
[2019-06-11] MEDS: GUAIFENESIN-DM 200/20 MG 10 ML PO SCH ×2 (18:35→22:09)
[2019-06-12] VITALS (33 sets, daily range): BP systolic 105–155; BP diastolic 36–113
[2019-06-12] MEDS ORDERED: CLONAZEPAM 0.5 MG TABLET ONE (00:11)
[2019-06-12] MEDS: GUAIFENESIN-DM 200/20 MG 10 ML PO SCH ×7 (03:25→21:48)
[2019-06-12] MEDS: VANCOMYCIN 250MG/5ML ORAL SOLUTION 40ML PO SCH ×8 (03:25→21:20)
[2019-06-12 03:56] LABS: BASOPHILS % (AUTO) 0.5 % (0.0-5.0); EOSINOPHILS % (AUTO) 2.5 % (0.0-8.0); HEMATOCRIT 23.7 % (42-54); LYMPHOCYTES % (AUTO) 4.4 % (21.0-51.0); MEAN CORPUSCULAR HEMOGLOBIN 33.5 pg (27.0-33.0); MEAN CORPUSCULAR HGB CONC 32.9 g/dL (32.0-36.0); MEAN CORPUSCULAR VOLUME 101.7 fL (79-99); MONOCYTES % (AUTO) 2.2 % (3.0-13.0); NEUTROPHILS % (AUTO) 87.5 % (40.0-77.0); PLATELET COUNT (AUTO) 95 K/uL (130-400); RED BLOOD CELL COUNT(AUTO) 2.33 MIL/uL (4.50-6.20); RED CELL DISTRIBUTION WIDTH 26.7 % (11.0-15.5)
[2019-06-12] MEDS: INSULIN LISPRO 100 UNIT/ML 3ML SQ SCH ×4 (06:52→21:00)
[2019-06-12] MEDS ORDERED: LEVOTHYROXINE 112 MCG TABLET ONE (06:54)
[2019-06-12] MEDS ORDERED: LEVOTHYROXINE 112 MCG TABLET PO SCH (07:30)
[2019-06-12] MEDS: INSULIN GLARGINE 100 UNITS/ML 10 ML VIAL SQ SCH (09:00)
[2019-06-12] MEDS: **HM** VIT D3 2000 UNITS PO SCH (09:00)
[2019-06-12] MEDS: MONTELUKAST SODIUM 10 MG TAB PO SCH (09:42)
[2019-06-12] MEDS: CLOPIDOGREL BISULFATE 75 MG TAB PO SCH (09:42)
[2019-06-12] MEDS: FAMOTIDINE/PF 20 MG/2 ML VIAL IV SCH (09:42)
[2019-06-12] MEDS: ATORVASTATIN CALCIUM 20 MG TABLET PO SCH (09:42)
[2019-06-12] MEDS: ASPIRIN 81 MG EC TAB PO SCH (09:42)
[2019-06-12] MEDS: FOLIC ACID 1 MG TABLET PO SCH (09:42)
[2019-06-12] MEDS: FERROUS SULFATE 325 MG TABLET.DR PO SCH ×2 (09:42→17:46)
[2019-06-12] MEDS: HYDROXYUREA 500 MG CAP PO SCH ×3 (09:42→21:19)
[2019-06-12] MEDS ORDERED: ALBUMIN (HUMAN) 25% 50 ML IV SCH (11:06)
[2019-06-12] MEDS ORDERED: ALBUMIN (HUMAN) 25% 100 ML IV SCH (11:30)
[2019-06-12] MEDS: ZYVOX 600 MG TAB PO SCH (11:30)
[2019-06-12 12:47] LABS: HEPATITIS A ANTIBODY IGM Negative (Negative); HEPATITIS B CORE IGM Negative (Negative); HEPATITIS Bs ANTIGEN SCREEN P Negative (Negative)
--- NOTE | 2019-06-12 13:00 | NUR ---
DYSPHAGIA EVAL COMPLETED. +S/S OF ASPIRATION. RECOMMEND PUREED, HONEY-THICK LIQUIDS; PILLS CRUSHED WITH APPLESAUCE. RECOMMENDATIONS: 1. SKILLED SPEECH THERAPY 2-3XWEEK TOLERATED TARGETING SWALLOWING. LTG#1: Pt WILL TOLERATE LEAST RESTRICTIVE DIET TO MEET NUTRITION/HYDRATION WITH NO S/S OF ASPIRATION. LTG#2: SKILLED EDUCATION Pt/FAMILY/STAFF STG#1: Pt WILL PARTICIPATE IN LARYNGEAL ELEVATION/EXCURSION EXERCISES WITH 80% ACCURACY. STG#2: Pt WILL PARTICIPATE IN TONGUE BASE RETRACTION EXERCISES WITH 80% ACCURACY. STG#3: Pt WILL PARTICIPATE IN ORAL MOTOR EXERCISES WITH 80% ACCURACY. STG#4: Pt WILL TOLERATE PUREED, HONEY-THICK LIQUID DIET WITH NO OVERT S/S OF ASPIRATION. STG#5: SKILLED EDUCATION Pt/FAMILY/STAFF. Addendum: 06/13/19 at 0821 by MALINI SANCHEZ, [facility] Amended: Links added.
[2019-06-12] MEDS: COLISTIN IV SCH (13:56)
[2019-06-12] MEDS: SODIUM CHLORIDE 0.9% IV SCH (13:56)
--- NOTE | 2019-06-12 18:17 | NUR ---
Dr. Perales called per Dr. Cook. for consult. pending return phone call
--- NOTE | 2019-06-12 18:30 | NUR ---
Called regarding consult for left foot PVD MD stated he will stop by to assess patient today.
--- NOTE | 2019-06-12 19:47 | NUR ---
Dr. reyes aware of elevated tsh
--- NOTE | 2019-06-12 20:00 | NUR ---
Dr Perales here earlier. Spoke with patient's son, , and dtr in law. Discussed patient status in detail, questions answered, discussed plan of care. Initial assessment completed, repositioned for comfort. Call light and needed items placed readily at hand. Encouraged to call prn.
[2019-06-12] MEDS ORDERED: CLONAZEPAM 0.5 MG TABLET PO SCH (21:00)
[2019-06-12] MEDS: CARVEDILOL 3.125 MG TABLET PO SCH (21:48)
[2019-06-13] VITALS (7 sets, daily range): BP systolic 91–147; BP diastolic 42–66
[2019-06-13] MEDS: ZYVOX 600 MG TAB PO SCH (00:23)
--- NOTE | 2019-06-13 00:56 | NUR ---
Patient transferred to room 204 PCCU as per physician's orders. at bedside. Report given to Rabia HOLDER. Care of patient endorsed to Rabia HOLDER. Patient status unchanged. No c/o pain, sob. Left leg elevated on a pillow. Left arm PICC line patent.
[2019-06-13] MEDS: GUAIFENESIN-DM 200/20 MG 10 ML PO SCH ×6 (02:01→23:00)
[2019-06-13] MEDS: VANCOMYCIN 250MG/5ML ORAL SOLUTION 40ML PO SCH ×8 (02:15→20:13)
[2019-06-13] MEDS: INSULIN LISPRO 100 UNIT/ML 3ML SQ SCH ×4 (06:11→21:00)
[2019-06-13 06:20] LABS: THYROID STIMULATING HORMONE 97.42 uIU/mL (0.36-3.74)
[2019-06-13] MEDS ORDERED: LEVOTHYROXINE 100 MCG VIAL IV SCH (06:30)
[2019-06-13] MEDS: FERROUS SULFATE 325 MG TABLET.DR PO SCH ×2 (08:00→17:00)
--- NOTE | 2019-06-13 08:00 | NUR ---
ASSESSMENT ENCOUNTERED PT ASLEEP BUT AROUSEABLE, A&O TO NAME ONLY, PT DENIES PAIN, SOB, NAUSEA BUT IS ANXIOUS AND ASKING TO GET OUT OF BED. PT DOES HAVE NON PRODUCTIVE COUGH. CATHETER TO LEFT UPPER ARM, SITE DRY AND INTACT. PT IS REFUSING TO EAT MEALS, INFORMED PT AND FAMILY AT BEDSIDE IMPORTANCE OF NUTRITION AND HEALING. THEY STATE THEY WILL ATTEMPT TO ASSIST WITH MEALS. DRESSING TO LEFT LOWER EXTREMITY DRY AND INTACT. CALL LIGHT WITHIN REACH, PT PENDING HEMODIALYSIS.
[2019-06-13] MEDS: HYDROXYUREA 500 MG CAP PO SCH ×3 (09:00→21:17)
[2019-06-13] MEDS: **HM** VIT D3 2000 UNITS PO SCH (09:00)
[2019-06-13] MEDS: MONTELUKAST SODIUM 10 MG TAB PO SCH (09:00)
[2019-06-13] MEDS: FOLIC ACID 1 MG TABLET PO SCH (09:00)
[2019-06-13] MEDS: FAMOTIDINE/PF 20 MG/2 ML VIAL IV SCH (09:00)
[2019-06-13] MEDS: INSULIN GLARGINE 100 UNITS/ML 10 ML VIAL SQ SCH (09:00)
[2019-06-13] MEDS: CLOPIDOGREL BISULFATE 75 MG TAB PO SCH (09:00)
[2019-06-13] MEDS: ASPIRIN 81 MG EC TAB PO SCH (09:00)
[2019-06-13] MEDS: CARVEDILOL 3.125 MG TABLET PO SCH ×2 (09:00→21:00)
--- NOTE | 2019-06-13 10:00 | NUR ---
HOLD Pt CURRENTLY IN DIALYSIS. SAFE SWALLOW PRECAUTIONS PLACED ON Pt'S DOOR. Pt CURRENTLY ON PUREED, HONEY-THICK LIQUIDS. Pt CONTINUES TO BE CONFUSED. BLANKER OPERATOR COORDINATED WITH NURSE MAYFIELD TO CONTINUE PUREED, HONEY-THICK LIQUIDS; PILLS CRUSHED. BLANKER OPERATOR WILL CONTINUE TO FOLLOW Pt. Addendum: 06/13/19 at [address] Amended: Links added.
[2019-06-13] MEDS ORDERED: COMPOUND IV MISC 1 EACH IVSOLN MISC PRN (11:30)
--- NOTE | 2019-06-13 12:20 | NUR ---
DC PLAN DR. JULIEN VISITED WITH FAMILY ANSWERED ALL QUESTIONS ASKED. WENT OVER THE PLAN OF CARE AND GOALS OF CARE WITH FAMILY. AT THIS TIME FAMILY WANTS TO CONTINUE ALL TREATMENTS EXCEPT AMPUTATION. SINCE IN PREVIOUS CONVERSATIONS DAD HAD BEEN AGAINST IT. DR. HUNTER TRIED TO TO EXPLAIN THE OPTIONS. FINAL DECISION WAS OKAY FOR LT[facility]. MARILOU SIGNED. INFO FAXED. REP NOTIFIED. SINCE PATIENT IS WELLMED IT CAN TAKE 3 DAYS FOR APPROVAL. Addendum: 06/13/19 at 1225 by ALMAS ALMANZA RN CM Amended: Links added.
--- NOTE | 2019-06-13 16:00 | NUR ---
REFUSING MEDS PT REFUSING ALL ORAL MEDS.
[2019-06-13] MEDS: COLISTIN IV SCH (17:07)
[2019-06-13] MEDS: SODIUM CHLORIDE 0.9% IV SCH (17:07)
[2019-06-13] MEDS: ATORVASTATIN CALCIUM 20 MG TABLET PO SCH (21:17)
--- NOTE | 2019-06-13 22:30 | NUR ---
DR GARCIA HERE, REDRESSED LT FOOT
[2019-06-14] MEDS: VANCOMYCIN 250MG/5ML ORAL SOLUTION 40ML PO SCH ×8 (01:24→20:15)
[2019-06-14] MEDS: GUAIFENESIN-DM 200/20 MG 10 ML PO SCH ×6 (02:28→23:00)
[2019-06-14 03:06] VITALS: BP 114/57
[2019-06-14] MEDS: LEVOTHYROXINE 100 MCG VIAL IV SCH ×2 (06:15→06:30)
[2019-06-14] MEDS: INSULIN LISPRO 100 UNIT/ML 3ML SQ SCH ×4 (06:16→22:47)
--- NOTE | 2019-06-14 06:20 | NUR ---
went to give iv med and midline exterior line missing, line had been broke off, line dc'd, tip intact 0630-dr waller paged retun call and recieved order to place another picc line house wrecker notified
[2019-06-14] MEDS ORDERED: LEVOTHYROXINE 112 MCG TABLET PO SCH (06:30)
[2019-06-14 07:21] LABS: INR 1.23 (0.85-1.15); PROTHROMBIN TIME 12.8 SEC (9.6-11.6)
[2019-06-14 08:07] VITALS: BP 96/51
[2019-06-14] MEDS: ASPIRIN 81 MG EC TAB PO SCH (09:00)
[2019-06-14] MEDS: **HM** VIT D3 2000 UNITS PO SCH (09:00)
[2019-06-14] MEDS: CARVEDILOL 3.125 MG TABLET PO SCH ×2 (09:00→21:00)
[2019-06-14] MEDS: HYDROXYUREA 500 MG CAP PO SCH ×3 (09:00→21:00)
[2019-06-14] MEDS: FAMOTIDINE/PF 20 MG/2 ML VIAL IV SCH (09:00)
[2019-06-14] MEDS: CLOPIDOGREL BISULFATE 75 MG TAB PO SCH (09:00)
[2019-06-14] MEDS: INSULIN GLARGINE 100 UNITS/ML 10 ML VIAL SQ SCH (09:00)
--- NOTE | 2019-06-14 10:05 | NUR ---
DC PLAN SPOKE TO KASSIDY AT [facility]. SAID HAS NOT RECEIVED PACKET YET. DISCUSSED CASE PLEADED CASE FOR LTAC. SAID WILL LIKELY NEED PEER TO PEER. WILL LET DR. JULIEN KNOW. Addendum: 06/14/19 at 1006 by ALMAS ALMANZA RN CM Amended: Links added.
[2019-06-14 10:46] LABS: BASOPHILS % (AUTO) 0.4 % (0.0-5.0); HEMATOCRIT 21.7 % (42-54); MEAN CORPUSCULAR HEMOGLOBIN 33.8 pg (27.0-33.0); MEAN CORPUSCULAR HGB CONC 32.3 g/dL (32.0-36.0); MEAN CORPUSCULAR VOLUME 104.8 fL (79-99); MONOCYTES % (AUTO) 3.6 % (3.0-13.0); NEUTROPHILS % (AUTO) 85.3 % (40.0-77.0); PLATELET COUNT (AUTO) 92 K/uL (130-400); RED BLOOD CELL COUNT(AUTO) 2.07 MIL/uL (4.50-6.20); WHITE BLOOD COUNT (AUTO) 18.4 K/uL (4.8-10.8)
[2019-06-14] MEDS: MONTELUKAST SODIUM 10 MG TAB PO SCH (10:53)
[2019-06-14] MEDS: FOLIC ACID 1 MG TABLET PO SCH (10:53)
[2019-06-14 11:00] LABS: CREATININE 5.4 mg/dL (0.5-1.5); POTASSIUM 3.9 mmol/L (3.5-5.1)
[2019-06-14 12:00] VITALS: BP 124/50
[2019-06-14] MEDS: FLUCONAZOLE 200 MG/NS 100 ML 100 ML IV SCH (14:00)
[2019-06-14] MEDS: SODIUM CHLORIDE 0.9% IV SCH (15:00)
[2019-06-14] MEDS: COLISTIN IV SCH (15:00)
[2019-06-14 15:57] VITALS: BP 114/44
--- NOTE | 2019-06-14 16:41 | NUR ---
RD Follow up Pt with Poor PO and confusion. Ayan/ProMod supplementation in place. Concern for elevated Cr (5.4); Rec to cont. dialysis diet. Pt to transfer to LTC facility as per EMR. Please notify as additional nutrition concerns arise. Thank you. Addendum: 06/14/19 at [address] Amended: Links added.
--- NOTE | 2019-06-14 17:10 | NUR ---
PICC I spoke with Dr. Cook about PICC line insertion. Recommended to speak with cardiology. I spoke with Dr. Perales about alternative to PICC Line and recommended we speak with IR for possible solution. I spoke with Rabia Nathan who will assist me tomorrow with having IR review patients films and determine best alternative for line. This information was given to Dr. Cook. Order to cancel Picc given and nursing communication for IR recommendations.
[2019-06-14 20:05] VITALS: BP 128/44
[2019-06-14] MEDS: ATORVASTATIN CALCIUM 20 MG TABLET PO SCH (21:00)
[2019-06-14 23:33] VITALS: BP 125/63
[2019-06-15] MEDS: GUAIFENESIN-DM 200/20 MG 10 ML PO SCH ×5 (03:00→22:26)
[2019-06-15] MEDS: VANCOMYCIN 250MG/5ML ORAL SOLUTION 40ML PO SCH ×8 (03:44→22:05)
[2019-06-15 04:00] VITALS: BP 122/75
[2019-06-15 04:30] LABS: BASOPHILS % (AUTO) 0.5 % (0.0-5.0); EOSINOPHILS % (AUTO) 2.3 % (0.0-8.0); LYMPHOCYTES % (AUTO) 6.3 % (21.0-51.0); MEAN CORPUSCULAR HEMOGLOBIN 33.5 pg (27.0-33.0); MEAN CORPUSCULAR HGB CONC 31.9 g/dL (32.0-36.0); MONOCYTES % (AUTO) 3.8 % (3.0-13.0); NEUTROPHILS % (AUTO) 81.1 % (40.0-77.0); PLATELET COUNT (AUTO) 90 K/uL (130-400); RED CELL DISTRIBUTION WIDTH 26.4 % (11.0-15.5); WHITE BLOOD COUNT (AUTO) 12.4 K/uL (4.8-10.8)
[2019-06-15 04:49] LABS: CREATININE 6.3 mg/dL (0.5-1.5); CRP QUANTITATIVE 148.6 mg/L (0.00-9.0); POTASSIUM 3.6 mmol/L (3.5-5.1)
--- NOTE | 2019-06-15 04:50 | NUR ---
UPDATE 2948 INFORMED CONSTRUCTION SUPERINTENDENT VERO MORA HBG 6.7 HCT 21 AWARE OF NO IV ACCESS ORDER TO TRANSFUSE 1PRBC ONCE IV ACCESS IS OBTAINED
[2019-06-15 05:17] LABS: ERYTHROCYTE SEDIMENTATION RATE 88 MM/HR (0-20)
[2019-06-15] MEDS: LEVOTHYROXINE 100 MCG VIAL IV SCH (06:30)
[2019-06-15] MEDS: INSULIN LISPRO 100 UNIT/ML 3ML SQ SCH ×4 (07:30→21:32)
[2019-06-15 08:00] VITALS: BP 116/51
[2019-06-15] MEDS: MONTELUKAST SODIUM 10 MG TAB PO SCH (09:00)
[2019-06-15] MEDS: CARVEDILOL 3.125 MG TABLET PO SCH ×2 (09:00→22:04)
[2019-06-15] MEDS: INSULIN GLARGINE 100 UNITS/ML 10 ML VIAL SQ SCH (09:00)
[2019-06-15] MEDS: **HM** VIT D3 2000 UNITS PO SCH (09:00)
[2019-06-15] MEDS: FOLIC ACID 1 MG TABLET PO SCH (09:00)
[2019-06-15] MEDS: CLOPIDOGREL BISULFATE 75 MG TAB PO SCH (09:00)
[2019-06-15] MEDS: HYDROXYUREA 500 MG CAP PO SCH ×3 (09:00→22:05)
[2019-06-15] MEDS: ASPIRIN 81 MG EC TAB PO SCH (09:00)
--- NOTE | 2019-06-15 09:20 | NUR ---
SWALLOW TREATMENT COMPLETED. S:Pt SEATED IN BED WITH AT BEDSIDE. Pt FOLLOWING COMMANDS AT THIS TIME. Pt PARTICIPATED IN THERAPEUTIC INTERVENTION. O: Pt CURRENTLY TARGETING SWALLOWING GOALS. RESULTS ARE FOLLOWS: Pt PARTICIPATED IN THERAPEUTIC TRIALS OF PUREED AND HONEY-THICK LIQUID DIET X10 WITH NO OVERT S/S OF ASPIRATION. Pt WITH NO RESIDUE IN ORAL CAVITY. Pt IN ROOM AIR AT THIS TIME. A: Pt WITH IMPROVED PHARYNGEAL SWALLOW TIMELINESS DURING MANUAL PALPATION. IMPROVED COOPERATION AT THIS TIME. P: MBSS ORDERED AND PUT ON HOLD FOR TODAY SECONDARY TO PROCEDURES SCHEDULED AND DIALYSIS. FREIGHT SOLICITOR REPORTED PLAN FOR MBSS FOR TOMORROW WITH . REPORTS THAT SHE IS NOT SURE WHY IS NOT EATING AND IS CONFUSED, ATTRIBUTED TO CURRENT INFECTION. FREIGHT SOLICITOR COORDINATED CARE WITH NURSE MACK. Addendum: 06/15/19 at 1232 by MALINI SANCHEZ, [facility] Amended: Links added.
--- NOTE | 2019-06-15 11:51 | NUR ---
DR TRIPLETT ANESTHESIOLOGY HAS SUCCESSFULLY INSERTED A LEFT JUGULAR 7F TRIPLE LUMEN CENTRAL LINE TO THE LEFT JUGULAR VEIN. CXR CONFIRMED...
[2019-06-15 12:00] VITALS: BP 112/52
[2019-06-15 16:00] VITALS: BP 102/77
[2019-06-15] MEDS: FAMOTIDINE/PF 20 MG/2 ML VIAL IV SCH (17:10)
[2019-06-15] MEDS: FLUCONAZOLE 200 MG/NS 100 ML 100 ML IV SCH (17:12)
[2019-06-15] MEDS: COLISTIN IV SCH (17:12)
[2019-06-15] MEDS: SODIUM CHLORIDE 0.9% IV SCH (17:12)
[2019-06-15] MEDS: TOBRAMYCIN/DEXAMETHASONE OPTH SUSP 2.5 ML BOT OU SCH ×2 (18:32→22:04)
[2019-06-15 20:00] VITALS: BP 109/90
[2019-06-15 20:33] LABS: HEMATOCRIT 26.7 % (42-54); MEAN CORPUSCULAR HEMOGLOBIN 32.2 pg (27.0-33.0); MEAN CORPUSCULAR VOLUME 97.8 fL (79-99); PLATELET COUNT (AUTO) 87 K/uL (130-400); RED BLOOD CELL COUNT(AUTO) 2.73 MIL/uL (4.50-6.20); RED CELL DISTRIBUTION WIDTH 23.1 % (11.0-15.5); WHITE BLOOD COUNT (AUTO) 10.7 K/uL (4.8-10.8)
[2019-06-15] MEDS: ATORVASTATIN CALCIUM 20 MG TABLET PO SCH (22:02)
[2019-06-15] MEDS: NEOMY SULF/BACITRAC ZN/POLY OINT 30GM TUBE TP SCH (22:04)
[2019-06-16] VITALS: BP 150/103
[2019-06-16] MEDS: GUAIFENESIN-DM 200/20 MG 10 ML PO SCH ×4 (02:25→15:18)
[2019-06-16] MEDS: TOBRAMYCIN/DEXAMETHASONE OPTH SUSP 2.5 ML BOT OU SCH ×4 (02:27→15:13)
[2019-06-16] MEDS: VANCOMYCIN 250MG/5ML ORAL SOLUTION 40ML PO SCH ×6 (02:28→15:27)
[2019-06-16 06:10] LABS: BASOPHILS % (AUTO) 0.5 % (0.0-5.0); EOSINOPHILS % (AUTO) 1.6 % (0.0-8.0); HEMATOCRIT 27.2 % (42-54); LYMPHOCYTES % (AUTO) 8.1 % (21.0-51.0); MEAN CORPUSCULAR HEMOGLOBIN 31.9 pg (27.0-33.0); MEAN CORPUSCULAR HGB CONC 32.7 g/dL (32.0-36.0); MEAN CORPUSCULAR VOLUME 97.5 fL (79-99); MONOCYTES % (AUTO) 4.5 % (3.0-13.0); NEUTROPHILS % (AUTO) 84.1 % (40.0-77.0); PLATELET COUNT (AUTO) 94 K/uL (130-400); RED BLOOD CELL COUNT(AUTO) 2.79 MIL/uL (4.50-6.20); WHITE BLOOD COUNT (AUTO) 12.2 K/uL (4.8-10.8)
[2019-06-16 06:25] LABS: ALBUMIN 3.6 g/dL (3.5-5.0); BILIRUBIN,TOTAL 1.7 mg/dL (0.2-1.0); POTASSIUM 3.6 mmol/L (3.5-5.1); TOTAL PROTEIN, SERUM 7.5 g/dL (6.0-8.3)
[2019-06-16] MEDS: LEVOTHYROXINE 100 MCG VIAL IV SCH (06:30)
[2019-06-16] MEDS: INSULIN LISPRO 100 UNIT/ML 3ML SQ SCH ×2 (06:54→10:59)
[2019-06-16] MEDS: CARVEDILOL 3.125 MG TABLET PO SCH (09:00)
[2019-06-16 09:07] VITALS: BP 123/44
[2019-06-16] MEDS: CLOPIDOGREL BISULFATE 75 MG TAB PO SCH (09:58)
[2019-06-16] MEDS: ASPIRIN 81 MG EC TAB PO SCH (09:58)
[2019-06-16] MEDS: MONTELUKAST SODIUM 10 MG TAB PO SCH (09:58)
[2019-06-16] MEDS: HYDROXYUREA 500 MG CAP PO SCH (09:59)
[2019-06-16] MEDS: **HM** VIT D3 2000 UNITS PO SCH (09:59)
[2019-06-16] MEDS: FOLIC ACID 1 MG TABLET PO SCH (09:59)
[2019-06-16] MEDS: FAMOTIDINE/PF 20 MG/2 ML VIAL IV SCH (09:59)
[2019-06-16] MEDS: NEOMY SULF/BACITRAC ZN/POLY OINT 30GM TUBE TP SCH (09:59)
[2019-06-16] MEDS: INSULIN GLARGINE 100 UNITS/ML 10 ML VIAL SQ SCH (10:06)
[2019-06-16 11:57] VITALS: BP 149/117
--- NOTE | 2019-06-16 13:04 | NUR ---
MBSS COMPLETED. -S/S OF ASPIRATION. RECOMMEND FINELY CHOPPED, THIN LIQUIDS; PILLS CRUSHED WITH APPLESAUCE. ITEM REPAIR MANAGER PROVIDED RESULTS AND RECOMMENDATIONS WITH NURSE JESÚS AND . SHRUTI AT BEDSIDE. VERBALIZED UNDERSTANDING AND COMPLIANCE WITH RECOMMENDATIONS. ALL QUESTIONS ANSWERED AT THIS TIME. Addendum: 06/16/19 at 1307 by MALINI SANCHEZ [facility] Amended: Links added.
--- NOTE | 2019-06-16 13:05 | NUR ---
CM NOTE PER YANNA FROM [facility], PATIENT RECEIVED AUTHORIZATION FOR LTAC. DR. WYNN MADE AWARE, WILL DC TO [facility] TODAY.
[2019-06-16] MEDS: SODIUM CHLORIDE 0.9% IV SCH (15:26)
[2019-06-16] MEDS: COLISTIN IV SCH (15:26)
[2019-06-16] MEDS: FLUCONAZOLE 200 MG/NS 100 ML 100 ML IV SCH (15:26)
[2019-06-17] MEDS ORDERED: HYDROXYUREA 500 MG CAP PO SCH (09:00)
== END 2019-06-16 18:31 | DRG 500 ==
LOC: EDH 15:22 → EDHIP 19:41 → 3BH 22:23 → 2BH 06-10 10:36 → 2AH 06-13 01:07 → 3BH 06-15 20:36
PROVIDERS: ADMIT Internal Medicine; ATTEND Internal Medicine
PROC: 5A1D70Z Performance of Urinary Filtration, Intermittent, Less than 6 Hours Per Day (ICD-10-PCS; 2019-06-03)
PROC: 0KBW0ZZ Excision of Left Foot Muscle, Open Approach (ICD-10-PCS; principal; 2019-06-03 16:00)
PROC: 5A1D70Z Performance of Urinary Filtration, Intermittent, Less than 6 Hours Per Day (ICD-10-PCS; 2019-06-06)
PROC: 05HY33Z Insertion of Infusion Device into Upper Vein, Percutaneous Approach (ICD-10-PCS; 2019-06-08)
PROC: 05PYX3Z Removal of Infusion Device from Upper Vein, External Approach (ICD-10-PCS; 2019-06-08)
PROC: 30233N1 Transfusion of Nonautologous Red Blood Cells into Peripheral Vein, Percutaneous Approach (ICD-10-PCS; 2019-06-08)
PROC: B51NYZA Fluoroscopy of Left Upper Extremity Veins using Other Contrast, Guidance (ICD-10-PCS; 2019-06-08)
PROC: 5A1D70Z Performance of Urinary Filtration, Intermittent, Less than 6 Hours Per Day (ICD-10-PCS; 2019-06-08)
PROC: 5A1D70Z Performance of Urinary Filtration, Intermittent, Less than 6 Hours Per Day (ICD-10-PCS; 2019-06-09)
PROC: 5A1D70Z Performance of Urinary Filtration, Intermittent, Less than 6 Hours Per Day (ICD-10-PCS; 2019-06-10)
PROC: 5A1D70Z Performance of Urinary Filtration, Intermittent, Less than 6 Hours Per Day (ICD-10-PCS; 2019-06-12)
PROC: 5A1D70Z Performance of Urinary Filtration, Intermittent, Less than 6 Hours Per Day (ICD-10-PCS; 2019-06-13)
PROC: 02HV33Z Insertion of Infusion Device into Superior Vena Cava, Percutaneous Approach (ICD-10-PCS; 2019-06-13)
PROC: 02PYX3Z Removal of Infusion Device from Great Vessel, External Approach (ICD-10-PCS; 2019-06-13)
PROC: 5A1D70Z Performance of Urinary Filtration, Intermittent, Less than 6 Hours Per Day (ICD-10-PCS; 2019-06-15)
PROC: 05H633Z Insertion of Infusion Device into Left Subclavian Vein, Percutaneous Approach (ICD-10-PCS; 2019-06-15)
DX: T87.44 Infection of amputation stump, left lower extremity (principal); N18.6 End stage renal disease; A41.9 Sepsis, unspecified organism; J18.9 Pneumonia, unspecified organism; R65.21 Severe sepsis with septic shock; I50.43 Acute on chronic combined systolic (congestive) and diastolic (congestive) heart failure; J96.01 Acute respiratory failure with hypoxia; E11.52 Type 2 diabetes mellitus with diabetic peripheral angiopathy with gangrene; E87.1 Hypo-osmolality and hyponatremia; I13.2 Hypertensive heart and chronic kidney disease with heart failure and with stage 5 chronic kidney disease, or end stage renal disease; I96 Gangrene, not elsewhere classified; D47.1 Chronic myeloproliferative disease; E44.1 Mild protein-calorie malnutrition; G72.81 Critical illness myopathy; G93.40 Encephalopathy, unspecified; I48.3 Typical atrial flutter; Z16.24 Resistance to multiple antibiotics; M86.8X7 Other osteomyelitis, ankle and foot; D62 Acute posthemorrhagic anemia; E11.621 Type 2 diabetes mellitus with foot ulcer; E87.6 Hypokalemia; Z99.2 Dependence on renal dialysis; E11.22 Type 2 diabetes mellitus with diabetic chronic kidney disease; E11.69 Type 2 diabetes mellitus with other specified complication; B95.8 Unspecified staphylococcus as the cause of diseases classified elsewhere; D63.1 Anemia in chronic kidney disease; D69.6 Thrombocytopenia, unspecified; E03.9 Hypothyroidism, unspecified; E66.01 Morbid (severe) obesity due to excess calories; E78.5 Hyperlipidemia, unspecified; F32.9 Major depressive disorder, single episode, unspecified; I25.10 Atherosclerotic heart disease of native coronary artery without angina pectoris; I25.5 Ischemic cardiomyopathy; I27.20 Pulmonary hypertension, unspecified; I48.91 Unspecified atrial fibrillation; K14.0 Glossitis; L97.529 Non-pressure chronic ulcer of other part of left foot with unspecified severity; T87.81 Dehiscence of amputation stump; D45 Polycythemia vera; Y83.5 Amputation of limb(s) as the cause of abnormal reaction of the patient, or of later complication, without mention of misadventure at the time of the procedure; B95.2 Enterococcus as the cause of diseases classified elsewhere; B96.5 Pseudomonas (aeruginosa) (mallei) (pseudomallei) as the cause of diseases classified elsewhere; T40.2X5A Adverse effect of other opioids, initial encounter; Z95.820 Peripheral vascular angioplasty status with implants and grafts; Z95.1 Presence of aortocoronary bypass graft; Z89.511 Acquired absence of right leg below knee; Z91.19 Patient's noncompliance with other medical treatment and regimen; Z86.711 Personal history of pulmonary embolism; Z82.5 Family history of asthma and other chronic lower respiratory diseases; Z82.49 Family history of ischemic heart disease and other diseases of the circulatory system; Z83.3 Family history of diabetes mellitus; Z82.0 Family history of epilepsy and other diseases of the nervous system; Z82.3 Family history of stroke; Z79.4 Long term (current) use of insulin; Z79.02 Long term (current) use of antithrombotics/antiplatelets; Z79.01 Long term (current) use of anticoagulants; Z74.01 Bed confinement status; Z89.422 Acquired absence of other left toe(s); Z68.28 Body mass index [BMI] 28.0-28.9, adult; Y92.89 Other specified places as the place of occurrence of the external cause; I95.9 Hypotension, unspecified
CPT/HCPCS: 36415; 36430; 36556; 36584; 71045; 73630; 74176; 74230; 77001; 80048; 80053; 80074; 82040; 82270; 82948; 83540; 83550; 83605; 83615; 83735; 84145; 84439; 84443; 84481; 85014; 85018; 85025; 85027; 85060; 85610; 85651; 86140; 86850; 86900; 86901; 86922; 87040; 87070; 87076; 87077; 87186; 87205; 87507; 90935; 92526; 92610; 92611; 93005; 93306; 93925; 93971; A4606; A6453; C1751; C1769; G0378; J0360; J0770; J1450; J1644; J2250; J2405; J2543; J3010; J3370; J3490; J7030; P9016; P9046; P9047; Q0163; Q9967